=== PATIENT | female | born 1960 | race African-American/Black ===

== ENCOUNTER 2016-06-13 19:04 | Emergency (ER) | payer MEDICAID ==
[~2016-06-13] VITALS: Ht 165.1 cm; Wt 68.2 kg
[~2016-06-13 19:04] MED LIST: HYDR-3965 PO; IBUP-2070 PO
[2016-06-13] MEDS ORDERED: LIDOCAINE HCL BUFFERED 1% W/EPI 1:100,000 20 ML VIAL INJ ONE (21:30)
[2016-06-13 22:08] VITALS: BP 121/87
== END 2016-06-13 22:10 | disposition home or self-care (01) ==
LOC: EMS 19:08
DX: L02.413 Cutaneous abscess of right upper limb (principal); F17.210 Nicotine dependence, cigarettes, uncomplicated
CPT/HCPCS: 10060; 99283; J3490

== ENCOUNTER 2016-06-15 09:47 | Emergency (ER) | payer MEDICAID ==
[~2016-06-15] VITALS: Ht 165.1 cm; Wt 68.2 kg
[2016-06-15 10:20] VITALS: BP 103/62
[2016-06-15] MEDS ORDERED: DIATRIZOATE MEGLU/SOD 660/100 MG/ML 120 ML BOTTLE ONE (14:01)
== END 2016-06-15 10:53 | disposition home or self-care (01) ==
LOC: EMS 09:49
DX: Z48.817 Encounter for surgical aftercare following surgery on the skin and subcutaneous tissue (principal); F17.210 Nicotine dependence, cigarettes, uncomplicated
CPT/HCPCS: 99282; Q9963; 99281

== ENCOUNTER 2016-06-17 17:44 | Emergency (ER) | payer MEDICAID ==
[~2016-06-17] VITALS: Ht 165.1 cm; Wt 68.2 kg
[2016-06-17 19:45] VITALS: BP 119/68
[2016-06-17] MEDS ORDERED: POVIDONE-IODINE 10% 15 ML SOLUTION UD TP ONE (19:45)
[2016-06-17] MEDS ORDERED: BACITRACIN 0.9 GM PACKET OINTMENT TP ONE (20:00)
== END 2016-06-17 20:04 | disposition home or self-care (01) ==
LOC: EMS 17:46
DX: Z48.00 Encounter for change or removal of nonsurgical wound dressing (principal); L02.413 Cutaneous abscess of right upper limb; F17.210 Nicotine dependence, cigarettes, uncomplicated
CPT/HCPCS: 99283

== ENCOUNTER 2021-06-03 17:38 | Emergency (ER) | payer MEDICAID ==
[~2021-06-03] VITALS: Ht 162.6 cm; Wt 63.6 kg
[2021-06-03] MEDS ORDERED: KETOROLAC TROMETHAMINE 30 MG/ML VIAL IM ONE (19:00)
[2021-06-03] MEDS ORDERED: HYDROCODONE/ACETAMINOPHEN 5-325 MG TABLET PO ONE (19:45)
[2021-06-03] MEDS ORDERED: CYCL-448 PO (20:36)
[2021-06-03 21:28] VITALS: BP 119/67
== END 2021-06-03 21:35 | disposition home or self-care (01) ==
LOC: EMS 17:41
DX: M54.50 Low back pain, unspecified (principal); F17.210 Nicotine dependence, cigarettes, uncomplicated
CPT/HCPCS: 72100; 99283

== ENCOUNTER 2022-02-12 16:36 | Emergency (ER) | payer MEDICAID ==
[~2022-02-12] VITALS: Ht 160 cm; Wt 56.8 kg
[~2022-02-12 16:36] MED LIST changes: +CYCL-448 PO; -HYDR-3965 PO; -IBUP-2070 PO
[2022-02-12 16:56] VITALS: BP 109/60
[2022-02-12] MEDS ORDERED: IBUPROFEN 400 MG TABLET PO ONE (17:00)
[2022-02-12] MEDS ORDERED: HYDROCODONE/ACETAMINOPHEN 5-325 MG TABLET PO ONE (17:30)
== END 2022-02-12 18:40 | disposition home or self-care (01) ==
LOC: EMS 16:46
DX: S52.512A Displaced fracture of left radial styloid process, initial encounter for closed fracture (principal); F17.210 Nicotine dependence, cigarettes, uncomplicated; Z98.890 Other specified postprocedural states; W18.30XA Fall on same level, unspecified, initial encounter; Y93.89 Activity, other specified; Y92.89 Other specified places as the place of occurrence of the external cause; Y99.8 Other external cause status
CPT/HCPCS: 99283

== ENCOUNTER 2022-03-10 04:58 | Emergency (ER) | payer MEDICAID ==
[~2022-03-10] VITALS: Ht 165.1 cm; Wt 50.9 kg
[2022-03-10 06:21] LABS: BASOPHILS % (AUTO) 0.5 % (0.0-2.0); EOSINOPHILS % (AUTO) 0.8 % (1.0-6.0); HEMATOCRIT 33.2 % (36-46); HEMOGLOBIN 11.1 g/dL (12.0-16.0); LYMPHOCYTES # (AUTO) 1.9 K/uL (1.0-4.8); LYMPHOCYTES % (AUTO) 22.6 % (22.0-44.0); MEAN CORPUSCULAR HEMOGLOBIN 30.3 pg (26.0-34.0); MEAN CORPUSCULAR HGB CONC 33.5 G/dL (31.0-37.0); MEAN CORPUSCULAR VOLUME 91 fL (80-100); MONOCYTES # (AUTO) 0.6 K/uL (0.1-1.0); MONOCYTES % (AUTO) 6.9 % (2.0-9.0); NEUTROPHILS # (AUTO) 5.7 K/uL (1.8-7.7); NEUTROPHILS % (AUTO) 69.2 % (40.0-70.0); PLATELET COUNT (AUTO) 214 K/uL (150-450); RED BLOOD CELL COUNT(AUTO) 3.67 MIL/uL (4.00-5.20); RED CELL DISTRIBUTION WIDTH 14.4 % (11.5-14.5)
[2022-03-10] MEDS ORDERED: HYDR-4069 PO (06:29)
[2022-03-10] MEDS ORDERED: OXYC10TA48 PO (06:29)
[2022-03-10] MEDS ORDERED: MORPHINE SULFATE 2 MG/ML SYRINGE IVP ONE (06:30)
[2022-03-10 06:32] LABS: ANION GAP 1 mmol/L (8-16); CALCIUM, TOTAL 9.7 mg/dL (8.8-10.5); CARBON DIOXIDE 33 mmol/L (22-29); CHLORIDE 100 mmol/L (98-107); CREATININE 0.72 mg/dL (0.60-1.30); GLUCOSE,RANDOM 93 mg/dL (70-110); POTASSIUM 3.8 mmol/L (3.5-5.1); SODIUM SERUM 134 mmol/L (136-145); UREA NITROGEN, BLOOD 8 mg/dL (7-18)
[2022-03-10 06:33] LABS: GLOMERULAR FILTR. RATE CALC > 60 mL/min (>60)
[2022-03-10 06:34] LABS: INR 1.1 (0.9-1.1); PROTHROMBIN TIME 11.4 SEC (9.4-11.6)
[2022-03-10 06:38] LABS: ALANINE AMINOTRANSFERASE 27 U/L (12-78); ALBUMIN 3.7 g/dL (3.4-5.0); ALKALINE PHOSPHATASE 114 U/L (46-116); ASPARTATE AMINOTRANSFERASE 28 U/L (15-37); BILIRUBIN,TOTAL 0.5 mg/dL (0.1-1.0); TOTAL PROTEIN, SERUM 7.7 g/dL (6.4-8.2)
[2022-03-10 08:40] VITALS: BP 125/78
== END 2022-03-10 08:46 | disposition home or self-care (01) ==
LOC: EMS 04:59
DX: S52.502A Unspecified fracture of the lower end of left radius, initial encounter for closed fracture (principal); F17.210 Nicotine dependence, cigarettes, uncomplicated; Z98.890 Other specified postprocedural states; X58.XXXA Exposure to other specified factors, initial encounter; Y93.89 Activity, other specified; Y92.89 Other specified places as the place of occurrence of the external cause; Y99.8 Other external cause status
CPT/HCPCS: 99285; 96374; 80053; 85025; 85610; 85730; 36415; 73090; 29125; J2270